=== PATIENT | female | born 1945 | race Asian ===

== ENCOUNTER 2016-02-15 14:24 | Emergency (ER) | payer OTHER ==
[~2016-02-15] VITALS: Ht 154.9 cm; Wt 54.0 kg
[2016-02-15] MEDS ORDERED: LOSARTAN POTASSIUM 25 MG TABLET ONE (15:20)
[2016-02-15] MEDS ORDERED: AMLODIPINE BESYLATE 5 MG TABLET ONE (15:20)
[2016-02-15] MEDS ORDERED: LOSARTAN POTASSIUM 25 MG TABLET PO ONE (15:30)
[2016-02-15] MEDS ORDERED: AMLODIPINE BESYLATE 5 MG TABLET PO ONE (15:30)
[2016-02-15 16:44] VITALS: BP 131/71
== END 2016-02-15 16:45 | disposition home or self-care (01) ==
LOC: ER 14:27
DX: I10 Essential (primary) hypertension (principal)
CPT/HCPCS: 99283; A4606; Z7610